=== PATIENT | female | born 1985 | race Caucasian/White ===

== ENCOUNTER 2018-11-24 08:19 | Emergency (ER) | payer OTHER ==
[2018-11-24 08:39] VITALS: BP 120/93
--- NOTE | 2018-11-24 09:37 | UC ---
Respiratory Complaint HPI - HPI Summary HPI Summary: 6 DAYS OF COUGH, CONGESTION, SORE THROAT, FATIGUE, HOARSE VOICE AND SINUS PRESSURE. HAS BEEN TAKING TYLENOL WITH SOME MILD RELIEF. DENIES FEVER. NO NAUSEA/VOMITING. OF NOTE SHE IS 9 WEEKS . NO URINARY SYMPTOMS. - History of Current Complaint Chief Complaint: UCGeneralIllness Stated Complaint: SINUSES,CONGESTION Time Seen by Provider: 11/24/18 09:20 Hx Obtained From: Patient Hx Last Menstrual Period: 10/23/13 Onset/Duration: Gradual Onset, Lasting Days, Still Present Timing: Constant Severity Initially: Moderate Severity Currently: Moderate Pain Intensity: 8 Pain Scale Used: 0-10 Numeric Character: Cough: Productive Aggravating Factors: Nothing Alleviating Factors: Nothing Associated Signs And Symptoms: Positive: URI, Nasal Congestion, Sinus Discomfort. Negative: Dyspnea, Fever, Chills, Wheezing - Allergies/Home Medications Allergies/Adverse Reactions: Allergies Allergy/AdvReac Type Severity Reaction Status Date / Time No Known Allergies Allergy Verified 11/24/18 08:39 Home Medications: Home Medications Acetaminophen TAB* [Tylenol TAB*] 325 mg PO Q4H PRN 11/24/18 [History Confirmed 11/24/18] PMH/Surg Hx/FS Hx/Imm Hx Previously Healthy: Yes - Surgical History Surgical History: None - Family History Known Family History: Positive: Non-Contributory - Social History Alcohol Use: None Substance Use Type: None Smoking Status (MU): Never Smoked Tobacco Review of Systems All Other Systems Reviewed And Are Negative: Yes Constitutional: Positive: Fatigue ENT: Positive: Sore Throat, Nasal Discharge, Sinus Congestion Respiratory: Positive: Cough Cardiovascular: Positive: Negative Gastrointestinal: Positive: Negative Genitourinary: Positive: Negative Physical Exam Triage Information Reviewed: Yes Appearance: No Pain Distress, Well-Nourished, Ill-Appearing - SEEM FATIGUED BUT OTHERWISE NON TOXIC Vital Signs: Initial Vital Signs Temp 98.3 F 11/24/18 08:34 Pulse 91 11/24/18 08:34 Resp 20 11/24/18 08:34 BP 120/93 11/24/18 08:34 Pulse Ox 99 11/24/18 08:34 Eyes: Positive: Conjunctiva Clear ENT: Positive: Hearing grossly normal, Pharynx normal, TMs normal Neck: Positive: Supple, Nontender, No Lymphadenopathy Respiratory Exam: Normal Cardiovascular Exam: Normal Abdomen Description: Positive: Soft Musculoskeletal: Positive: No Edema Neurological: Positive: Alert Psychological: Positive: Age Appropriate Behavior Skin: Negative: Rashes Respiratory Course/Dx - Course Course Of Treatment: LIKELY VIRALLY MEDIATED ILLNESS. NO INDICATION FOR ANTIBIOTICS TODAY ESPECIALLY GIVEN . HAVE ADVISED SHE TRY OTC AFRIN BEFORE BED FOR NASAL CONGESTION. SHE WILL STAY WELL HYDRATED AND TAKE TYLENOL IF NEEDED. HAS FOLLOW-UP WITH HER OB IN LESS THAN 2 WEEKS. - Differential Dx/Diagnosis Provider Diagnosis: Upper respiratory infection Discharge - Sign-Out/Discharge Documenting (check all that apply): Patient Departure All imaging exams completed and their final reports reviewed: No Studies - Discharge Plan Condition: Stable Disposition: HOME Patient Education Materials: Upper Respiratory Infection (ED) Referrals: Francisco J Hand [Primary Care Provider] - If Needed Additional Instructions: YOUR SYMPTOMS ARE LIKELY VIRALLY MEDIATED AND SHOULD RESOLVE ON THEIR OWN WITH TIME. NO INDICATION FOR ANTIBIOTICS AT PRESENT. REST, HYDRATE, TYLENOL NEEDED. GIVEN THAT YOU'RE EXPECT THIS ILLNESS WILL LAST LONGER THAN NORMAL. IT WOULD NOT BE SURPRISING IF YOU STILL HAVES SYMPTOMS A FEW WEEKS OUT. SEEK FOLLOW-UP AT ANY POINT SHOULD YOU FEEL YOUR SYMPTOMS ARE NOT PROGRESSING OR IMPROVING EXPECTED. USE OTC AFRIN FOR NASAL CONGESTION. 2 SPRAYS IN EACH NOSTRIL TWICE DAILY NEEDED. DO NOT USE FOR MORE THAN 3-4 DAYS IN A ROW TO PREVENT DEVELOPING REBOUND CONGESTION. IF YOU CHOOSE TO USE IT ONLY AT NIGHT YOU CAN EXTEND THE COURSE FOR 5 CONSECUTIVE DAYS. YOU MAY USE THIS MEDICATION IN . - Billing Disposition and Condition Condition: STABLE Disposition: Home
== END 2018-11-24 09:44 | disposition home or self-care (01) ==
LOC: UCCORT 08:19
DX: J06.9 Acute upper respiratory infection, unspecified (principal)
CPT/HCPCS: 99211; G0463

== ENCOUNTER 2022-01-11 18:05 | Inpatient (IN) ==
[2022-01-11] MEDS ORDERED: Buffered Lidocaine 1% SYRIN 1 ml INTRADERM ONE (18:17)
[2022-01-11] MEDS ORDERED: Lactated Ringers 1000 ml BAG 1,000 ML IV ONE (18:17)
[2022-01-11] MEDS ORDERED: Penicillin G Potassium IV 5,000,000 UNITS in NS 0.9% 100 ml BAG 100 ML IVPB ONE (18:17)
[2022-01-11] MEDS ORDERED: Promethazine INJ(RESTRICTED) 25 MG/ML 1 ml VIAL IV PRN (18:22)
[2022-01-11] MEDS ORDERED: Nalbuphine 10 MG/ML 1 ML VIAL IV PRN (18:23)
[2022-01-11] MEDS ORDERED: Dinoprostone 10 MG VAG.SUPP VAGINAL ONE (18:45)
[2022-01-11] MEDS ORDERED: Penicillin G Potassium IV 3,000,000 UNITS in NS 0.9% 100 ml BAG 100 ML IVPB SCH (19:00)
[2022-01-11 19:36] LABS: Urine Benzodiazepine Screen None Detected (None Detect); Urine Cannabinoids Screen None Detected (None Detect); Urine Opiates Screen None Detected (None Detect)
[2022-01-11 21:54] LABS: ABS Eosinophils 0.1 10^3/ul (0-0.6); ABS Lymphocytes 1.6 10^3/ul (1.0-4.8); ABS Monocytes 0.7 10^3/ul (0-0.8); ABS Neutrophils 6.5 10^3/ul (1.5-7.7); Eosinophil % 1.4 %; Hematocrit 38 % (35-47); Hemoglobin 12.3 g/dL (12.0-16.0); Lymphocyte % 17.7 %; Mean Corpuscular HGB Conc 33 g/dL (31-36); Mean Corpuscular Hemoglobin 27 pg (27-31); Mean Corpuscular Volume 81 fL (80-97); Mean Platelet Volume 7.9 fL (7.4-10.4); Platelet Count 300 10^3/uL (150-450); Red Cell Distribution Width 15 % (10-15)
[2022-01-11] MEDS ORDERED: Promethazine INJ(RESTRICTED) 25 MG/ML 1 ml VIAL ONE (23:01)
[2022-01-12] MEDS: Penicillin G Potassium IV 3,000,000 UNITS in NS 0.9% 100 ml BAG 100 ML IVPB SCH ×5 (03:17→20:41)
[2022-01-12] MEDS: Lactated Ringers 1000 ml BAG 1,000 ML IV SCH ×3 (08:09→20:51)
[2022-01-12] MEDS: Oxytocin in LR 20,000 MILLI.UNIT/1,000 ML BAG IV SCH (09:30)
[2022-01-12] MEDS: Calcium Carb (TUMS) 500 mg CHEW TAB PO SCH ×2 (16:20→21:28)
[2022-01-12] MEDS ORDERED: OBEPIDURAL (200 ML) 200 ML EPIDURAL ONE (19:29)
[2022-01-12] MEDS ORDERED: Lactated Ringers 1000 ml BAG 1,000 ML IV ONE (20:22)
[2022-01-12] MEDS ORDERED: Phenylephrine 40 mcg/mL 10mL (400mcg) SYRINGE IV PUSH PRN ×2 (20:22)
[2022-01-12] MEDS ORDERED: Sodium Citrate/Citric Acid LIQ 15 ML UDC PO PRN (20:22)
[2022-01-12] MEDS ORDERED: Lactated Ringers 1000 ml BAG 500 ML IV PRN ×2 (20:22)
[2022-01-12] MEDS ORDERED: Famotidine IV 10 MG/ML 2 ml VIAL (20 mg) IV SLOW PU ONE (20:36)
[2022-01-12] MEDS ORDERED: Famotidine IV 10 MG/ML 2 ml VIAL (20 mg) ONE (20:37)
[2022-01-12] MEDS ORDERED: Lactated Ringers 1000 ml BAG 1,000 ML IV SCH ×2 (21:00)
[2022-01-12] MEDS ORDERED: OBEPIDURAL (200 ML) 200 ML EPIDURAL SCH (21:00)
[2022-01-12 21:36] LABS: Urine Appearance Clear; Urine Bilirubin Negative (Negative); Urine Blood 1+ (Small) (Negative); Urine Color Straw; Urine Glucose Negative (Negative); Urine Ketones Negative (Negative); Urine Nitrite Negative (Negative); Urine Protein Negative (Negative); Urine Urobilinogen 0.2 (Negative) (Negative); Urine pH 6.5 (5.0-9.0)
[2022-01-12 21:45] LABS: Urine Bacteria Absent (Absent); Urine Red Blood Cell 3+(>10/hpf) (Absent); Urine Squamous Epithelial Cell Present (Absent); Urine White Blood Cell Trace(0-5/hpf) (Absent)
[2022-01-13] MEDS: Penicillin G Potassium IV 3,000,000 UNITS in NS 0.9% 100 ml BAG 100 ML IVPB SCH ×4 (00:31→21:03)
[2022-01-13] MEDS: Lactated Ringers 1000 ml BAG 1,000 ML IV SCH (03:51)
[2022-01-13] MEDS: Calcium Carb (TUMS) 500 mg CHEW TAB PO SCH ×4 (05:13→21:19)
[2022-01-13] MEDS: Oxytocin in LR 20,000 MILLI.UNIT/1,000 ML BAG IV SCH (08:23)
[2022-01-13] MEDS ORDERED: OBEPIDURAL (200 ML) 200 ML EPIDURAL ONE (09:10)
[2022-01-13] MEDS ORDERED: Lidocaine 2% w/ EPI 1:200,000 MPF 20 ML SDV VIAL ONE (09:22)
[2022-01-13] MEDS ORDERED: fentaNYL 100 mcg/2 ml 50 MCG/ML VIAL ONE (09:22)
[2022-01-13] MEDS ORDERED: Oxytocin in LR 20,000 MILLI.UNIT/1,000 ML BAG IV SCH (12:30)
[2022-01-13] MEDS ORDERED: Witch Hazel PAD JAR TOPICAL PRN (12:30)
[2022-01-13] MEDS ORDERED: Dibucaine 1% OINT 28.35 GM TUBE PR PRN (12:30)
[2022-01-13] MEDS ORDERED: Glycerin ADULT 2.4 gm SUPP PR PRN (12:30)
[2022-01-13] MEDS ORDERED: Methylergonovine 0.2 mg AMPULE 1 ml AMP IM ONE (12:30)
[2022-01-13] MEDS ORDERED: Ondansetron 4 mg VIAL 2 MG/ML 2 ml VIAL IV ONE (12:32)
[2022-01-13] MEDS ORDERED: Lactated Ringers 1000 ml BAG 1,000 ML IV SCH (13:00)
[2022-01-13 16:19] LABS: ABS Lymphocytes 0.8 10^3/ul (1.0-4.8); ABS Monocytes 0.6 10^3/ul (0-0.8); Eosinophil % 0.2 %; Hematocrit 30 % (35-47); Hemoglobin 9.7 g/dL (12.0-16.0); Lymphocyte % 5.7 %; Mean Corpuscular HGB Conc 32 g/dL (31-36); Mean Corpuscular Hemoglobin 26 pg (27-31); Mean Corpuscular Volume 80 fL (80-97); Mean Platelet Volume 7.7 fL (7.4-10.4); Platelet Count 297 10^3/uL (150-450); Red Cell Distribution Width 15 % (10-15); White Blood Count 13.4 10^3/uL (3.5-10.8)
[2022-01-13] MEDS ORDERED: Lidocaine 1% VIAL 10 MG/ML VIAL ONE (17:33)
[2022-01-14] MEDS: Calcium Carb (TUMS) 500 mg CHEW TAB PO SCH ×4 (00:16→21:08)
[2022-01-14 06:27] LABS: ABS Eosinophils 0.2 10^3/ul (0-0.6); ABS Lymphocytes 1.6 10^3/ul (1.0-4.8); ABS Monocytes 0.7 10^3/ul (0-0.8); ABS Neutrophils 6.6 10^3/ul (1.5-7.7); Eosinophil % 1.8 %; Hematocrit 23 % (35-47); Hemoglobin 7.5 g/dL (12.0-16.0); Lymphocyte % 17.4 %; Mean Corpuscular HGB Conc 33 g/dL (31-36); Mean Corpuscular Hemoglobin 26 pg (27-31); Mean Corpuscular Volume 80 fL (80-97); Mean Platelet Volume 7.7 fL (7.4-10.4); Platelet Count 249 10^3/uL (150-450); Red Blood Count 2.89 10^6 /uL (3.70-4.87); Red Cell Distribution Width 15 % (10-15); White Blood Count 9.1 10^3/uL (3.5-10.8)
[2022-01-15 06:06] LABS: ABS Eosinophils 0.2 10^3/ul (0-0.6); ABS Lymphocytes 1.3 10^3/ul (1.0-4.8); ABS Monocytes 0.5 10^3/ul (0-0.8); ABS Neutrophils 4.6 10^3/ul (1.5-7.7); Eosinophil % 2.8 %; Hematocrit 22 % (35-47); Lymphocyte % 19.4 %; Mean Corpuscular HGB Conc 32 g/dL (31-36); Mean Corpuscular Hemoglobin 26 pg (27-31); Mean Corpuscular Volume 81 fL (80-97); Mean Platelet Volume 7.4 fL (7.4-10.4); Platelet Count 259 10^3/uL (150-450); Red Blood Count 2.68 10^6 /uL (3.70-4.87); Red Cell Distribution Width 15 % (10-15); White Blood Count 6.6 10^3/uL (3.5-10.8)
[2022-01-15] MEDS: Calcium Carb (TUMS) 500 mg CHEW TAB PO SCH (09:50)
[2022-01-15 09:57] VITALS: BP 137/77
[2022-01-15] MEDS ORDERED: Ferric Gluconate IV 125 MG in NS 0.9% 100 ml BAG 100 ML IVPB ONE (10:55)
== END 2022-01-15 14:15 | disposition home or self-care (01) | DRG 560 ==
LOC: MCHOBOUT 18:05 → MCHOB 18:54
PROVIDERS: ADMIT Midwife; ATTEND Midwife

== ENCOUNTER 2023-07-25 07:55 | Inpatient (IN) ==
[2023-07-25] MEDS ORDERED: Prochlorperazine 5 mg/ml 2 ml VIAL (10 mg) IV PRN (08:24)
[2023-07-25] MEDS: Calcium Carb (TUMS) 500 mg CHEW TAB PO PRN (09:06)
[2023-07-25 09:52] LABS: Urine Benzodiazepine Screen None Detected (None Detect); Urine Opiates Screen None Detected (None Detect)
[2023-07-25] MEDS: miSOPROStol 100 mcg TAB PO ONE (10:05)
[2023-07-25] MEDS: Buffered Lidocaine 1% SYRIN 1 ml INTRADERM ONE (10:11)
[2023-07-25] MEDS: Lactated Ringers 1000 ml BAG 1,000 ML IV ONE (10:12)
[2023-07-25 10:49] LABS: ABS Basophils 0.1 10^3/uL (0.0-0.1); ABS Eosinophils 0.1 10^3/uL (0.0-0.5); ABS Lymphocytes 0.9 10^3/uL (1.0-4.8); ABS Monocytes 0.3 10^3/uL (0.0-0.9); ABS Neutrophils 6.6 10^3/uL (1.5-7.6); Eosinophil % 1.4 %; Hematocrit 38.1 % (35-45); Hemoglobin 12.6 g/dL (11.5-14.3); Lymphocyte % 11.2 %; Mean Corpuscular Hemoglobin 26.8 pg (27-33); Mean Corpuscular Volume 81.1 fL (80-97); Mean Platelet Volume 8.3 fL (7.5-11.2); Nucleated Red Blood Cells % 0.1 %/100WBC (0.0-0.8); Platelet Count 270 10^3/uL (150-450); Red Cell Distribution Width 15.9 % (12-17); White Blood Count 8.1 10^3/uL (3.8-11.8)
[2023-07-25] MEDS: miSOPROStol 100 mcg TAB PO SCH (14:35)
[2023-07-25] MEDS: Oxytocin in LR 20,000 MILLI.UNIT/1,000 ML BAG IV SCH (22:54)
[2023-07-26] MEDS: OBEPIDURAL (200 ML) 200 ML EPIDURAL ONE (03:40)
[2023-07-26] MEDS ORDERED: Lactated Ringers 1000 ml BAG 500 ML IV PRN ×2 (03:41)
[2023-07-26] MEDS ORDERED: Lactated Ringers 1000 ml BAG 1,000 ML IV ONE (03:41)
[2023-07-26] MEDS ORDERED: Phenylephrine 40 mcg/mL 10mL (400mcg) SYRINGE IV PUSH PRN ×2 (03:41)
[2023-07-26] MEDS ORDERED: Sodium Citrate/Citric Acid LIQ 15 ML UDC PO PRN (03:41)
[2023-07-26] MEDS ORDERED: Famotidine IV 10 MG/ML 2 ml VIAL (20 mg) IV PRN (03:41)
[2023-07-26] MEDS ORDERED: Lactated Ringers 1000 ml BAG 1,000 ML IV SCH (04:00)
[2023-07-26] MEDS: Lactated Ringers 1000 ml BAG 1,000 ML IV SCH (04:04)
[2023-07-26] MEDS: Lidocaine 1.5% EPI 1:200,000 30 ML SDV ONE (04:10)
[2023-07-26] MEDS: OBEPIDURAL (200 ML) 200 ML EPIDURAL SCH (04:10)
[2023-07-26 05:50] LABS: Urine Appearance Clear; Urine Bilirubin Negative (Negative); Urine Blood Negative (Negative); Urine Color Light-Yellow; Urine Glucose Negative (Negative); Urine Ketones Negative (Negative); Urine Nitrite Negative (Negative); Urine Protein Negative (Negative); Urine Specific Gravity 1.011 (1.002-1.030); Urine Urobilinogen Negative (Negative); Urine pH 6.5 (5.0-8.0)
[2023-07-26] MEDS: Lidocaine 1% VIAL 10 MG/ML 30 ML VIAL INJ PRN (10:15)
[2023-07-26] MEDS ORDERED: Glycerin ADULT 2.4 gm SUPP PR PRN (10:28)
[2023-07-26] MEDS: Oxytocin in LR 20,000 MILLI.UNIT/1,000 ML BAG IV SCH (11:13)
[2023-07-26] MEDS: Witch Hazel PAD JAR TOPICAL PRN (13:36)
[2023-07-26] MEDS: Dibucaine 1% OINT 28.35 GM TUBE PR PRN (13:36)
[2023-07-27 07:26] LABS: ABS Basophils 0.1 10^3/uL (0.0-0.1); ABS Eosinophils 0.2 10^3/uL (0.0-0.5); ABS Lymphocytes 1.5 10^3/uL (1.0-4.8); ABS Monocytes 0.4 10^3/uL (0.0-0.9); ABS Neutrophils 5.5 10^3/uL (1.5-7.6); Eosinophil % 2.2 %; Hematocrit 30.8 % (35-45); Hemoglobin 10.3 g/dL (11.5-14.3); Lymphocyte % 19.5 %; Mean Corpuscular Hemoglobin 26.8 pg (27-33); Mean Corpuscular Hgb Conc 33.5 g/dL (31-36); Mean Corpuscular Volume 80.1 fL (80-97); Platelet Count 226 10^3/uL (150-450); Red Blood Count 3.84 10^6/uL (3.63-4.92); Red Cell Distribution Width 16.1 % (12-17); White Blood Count 7.6 10^3/uL (3.8-11.8)
[2023-07-28 08:06] VITALS: BP 106/57
== END 2023-07-28 12:15 | disposition home or self-care (01) | DRG 560 ==
LOC: MCHOBOUT 07:55 → MCHOB 08:11
PROVIDERS: ADMIT Registered Nurse; ATTEND Midwife